=== PATIENT | female | born 2000 | race Caucasian/White ===

== ENCOUNTER 2024-02-26 04:35 | Inpatient (IN) | payer SELFPAY ==
[2024-02-26] VITALS (9 sets, daily range): BP systolic 123–147; BP diastolic 66–93
[2024-02-26] MEDS ORDERED: PREN1TAB18 PO (05:29)
[2024-02-26] MEDS ORDERED: IBUPROFEN 600MG TAB PO PRN (05:30)
[2024-02-26] MEDS ORDERED: METHYLERGONOVINE MALEATE 0.2 MG TAB PO PRN (05:30)
[2024-02-26] MEDS ORDERED: DIBUCAINE 1% OINTMENT 30GM TOP PRN (05:30)
[2024-02-26] MEDS ORDERED: HOME MED LIST COMPLETE! XX SCH (05:30)
[2024-02-26] MEDS ORDERED: DOCUSATE SODIUM 100MG CAPSULE PO PRN (05:30)
[2024-02-26] MEDS ORDERED: RHO(D) IMMUNE GLOBULIN/MALTOSE 500MCG(2500IU)/2.2ML VIAL (WINRHO) IM SCH (05:30)
[2024-02-26] MEDS ORDERED: IBUPROFEN 800 MG TAB PO PRN (05:30)
[2024-02-26] MEDS ORDERED: ACETAMINOPHEN TAB 650MG DOSE (2X325MG) PO PRN (05:30)
[2024-02-26] MEDS ORDERED: ACETAMINOPHEN 500 MG TAB PO PRN (05:30)
[2024-02-26] MEDS: OXYTOCIN INJ 10UNITS/ML 1ML VIAL IM PRN (06:39)
[2024-02-26] MEDS: METHYLERGONOVINE MALEATE 0.2MG/ML 1ML VIAL IM PRN (06:39)
[2024-02-26 08:55] LABS: HEMATOCRIT 39.4 % (36.0-47.0); HEMOGLOBIN 13.6 g/dl (12.0-15.5); MEAN CORPUSCULAR HEMOGLOBIN 29.1 pg (27.0-33.0); MEAN CORPUSCULAR HGB CONC 34.5 g/dl (32.0-36.5); MEAN CORPUSCULAR VOLUME 84.2 fl (80.0-96.0); PLATELET COUNT, AUTOMATED 314 10^3/uL (150-450); RED BLOOD COUNT 4.68 10^6/uL (4.00-5.40); WHITE BLOOD COUNT 20.3 10^3/uL (4.0-10.0)
[2024-02-26] MEDS: PRENATAL VITAMINS CHEWABLE TABLET PO SCH (09:01)
[2024-02-26 09:57] LABS: HEPATITIS C VIRUS ABY INDEX < 0.02 INDEX (<0.8)
[2024-02-28] MEDS ORDERED: MEASLES,MUMPS,RUBELLA VACCINE INJ (MMR-II) SC.IMMUN ONE (09:00)
== END 2024-02-26 15:30 | disposition home or self-care (01) | DRG 560 ==
LOC: M LDI 04:35
PROVIDERS: ADMIT Advanced Practice Midwife; ATTEND Advanced Practice Midwife
PROC: 10E0XZZ Delivery of Products of Conception, External Approach (ICD-10-PCS; principal; 2024-02-26)
DX: O60.14X0 Preterm labor third trimester with preterm delivery third trimester, not applicable or unspecified (principal); O32.1XX0 Maternal care for breech presentation, not applicable or unspecified; Z37.1 Single stillbirth; Z3A.29 29 weeks gestation of pregnancy

== ENCOUNTER → 2024-04-16 | Outpatient (CLI) | payer SELFPAY ==
[~2024-04-16] MED LIST: PREN1TAB18 PO
== END ==
LOC: M WHC 09:34
PROVIDERS: ATTEND Advanced Practice Midwife
DX: Q51.3 Bicornate uterus (principal); N83.202 Unspecified ovarian cyst, left side